=== PATIENT | female | born 1995 | race Caucasian/White ===

== ENCOUNTER → 2017-04-29 | Outpatient (CLI) | payer OTHER ==
[~2017-04-29] MED LIST: IBUP-1050 PO; LEVE500T13 PO; MULT-506 PO; SERT25TA PO
[2017-04-29 18:43] LABS: URINE APPEARANCE CLEAR (CLEAR); URINE BILIRUBIN NEG (NEG); URINE COLOR YELLOW; URINE NITRITE NEG (NEG); URINE PH 5.5 (4.5-7.5); URINE SPECIFIC GRAVITY 1.016 (1.000-1.030); UROBILINOGEN NEG (NEG)
[2017-04-29 18:51] LABS: MANUAL MICROSCOPIC REQUIRED? NO; REVIEW REQ? NO
== END | disposition home or self-care (01) ==
LOC: C.LABSPEC 17:56
PROVIDERS: ATTEND Nurse Practitioner Family
DX: R39.9 Unspecified symptoms and signs involving the genitourinary system (principal)

== ENCOUNTER → 2017-06-22 | Outpatient (CLI) | payer OTHER ==
[2017-06-22 10:24] LABS: BLOOD UREA NITROGEN 6 mg/dl (7-18); BUN/CREATININE RATIO 7.2 (10-20); CALCIUM 9.3 mg/dl (8.5-10.1); CARBON DIOXIDE 24 mmol/L (21-32); CHLORIDE 110 mmol/L (98-107); CREATININE 0.89 mg/dl (0.60-1.20); GLUCOSE 83 mg/dl (70-99); POTASSIUM 4.1 mmol/L (3.5-5.1); SODIUM 141 mmol/L (136-145)
[2017-06-22 10:27] LABS: CHOLESTEROL 155 mg/dl (0-200); CHOLESTEROL/HDL RATIO 2.7; HDL CHOLESTEROL 57 mg/dl; LDL CHOLESTEROL CALCULATED 77 mg/dl; TRIGLYCERIDES 104 mg/dl (0-150); VERY LOW DENSITY LIPOPROT CALC 21 mg/dl
== END | disposition home or self-care (01) ==
LOC: C.LAB1850 09:09
PROVIDERS: ATTEND Nurse Practitioner Family
DX: Z13.220 Encounter for screening for lipoid disorders (principal); Z13.1 Encounter for screening for diabetes mellitus

== ENCOUNTER → 2017-12-29 | Outpatient (CLI) | payer OTHER ==
[2017-12-29 16:39] LABS: BASO % 0.3 %; BASO ABS # 0.02 K/uL (0-0.2); EOS % 2.2 %; EOS ABS # 0.16 K/uL (0-0.5); HEMATOCRIT 41.3 % (37-47); HEMOGLOBIN 14.3 g/dL (12.0-16.0); IG# 0.01 K/uL (0.00-0.02); LYMPH % 38.9 %; LYMPH ABS # 2.85 K/uL (1.2-3.4); MEAN CELL VOLUME 87.3 fL (80-100); MEAN CORPUSCULAR HEMOGLOBIN 30.2 pg (25-34); MEAN CORPUSCULAR HGB CONC 34.6 g/dl (32-36); MEAN PLATELET VOLUME 11.6 fL (7.4-10.4); MONO % 6.8 %; NEUT % 51.7 %; NEUT ABS # 3.78 K/uL (1.4-6.5); PLATELET COUNT 150 K/uL (130-400); RED CELL DISTRIBUTION WIDTH CV 12.7 % (11.5-14.5); RED CELL DISTRIBUTION WIDTH SD 40.8 fL (36.4-46.3); WHITE BLOOD COUNT 7.32 K/uL (4.8-10.8)
[2017-12-29 17:08] LABS: ALBUMIN 4.2 gm/dl (3.4-5.0); ALT/SGPT 24 U/L (12-78); AST/SGOT 18 U/L (15-37); BLOOD UREA NITROGEN 9 mg/dl (7-18); CALCIUM 9.3 mg/dl (8.5-10.1); CARBON DIOXIDE 26 mmol/L (21-32); CREATININE 0.85 mg/dl (0.60-1.20); GLUCOSE 97 mg/dl (70-99); POTASSIUM 3.4 mmol/L (3.5-5.1); SODIUM 138 mmol/L (136-145)
[2017-12-29 17:19] LABS: ALKALINE PHOSPHATASE 38 U/L (45-117); TOTAL PROTEIN 7.6 gm/dl (6.4-8.2)
== END | disposition home or self-care (01) ==
LOC: C.LAB1850 16:04
PROVIDERS: ATTEND Nurse Practitioner Family
DX: R53.83 Other fatigue (principal)

== ENCOUNTER 2019-08-17 08:15 | Inpatient (IN) ==
[2019-08-18 09:02] LABS: Appearance Urine Cloudy (Clear); Bacteria Urine Automated 3+ (Negative); Bilirubin Urine Negative (Negative); Blood Urine Negative (Negative); Color Urine Yellow; Epithelial Cell Urine Auto >30 /lpf (0-5); Glucose Urine UA Negative (Negative); Ketones Urine 2+ (Negative); Leukocyte Esterase Urine 1+ (Negative); Nitrite Urine Negative (Negative); Protein Urine Negative (Negative); RBC Urine Automated 0-4 /hpf (0-4); Specific Gravity Urine 1.022 (1.000-1.030); Urobilinogen Urine Negative (Negative)
[2019-08-18 09:18] LABS: Hematocrit (blood only) 37.5 % (37-47); Hemoglobin 12.6 g/dL (12.0-16.0); Mean Corpuscular Hemoglobin 29.5 pg (25-34); Mean Corpuscular Hgb Conc 33.6 g/dL (32-36); Mean Corpuscular Volume 87.8 fL (80-100); Platelet Count 117 K/uL (130-400); Platelet Estimate Decreased (Normal); RDW Coefficient of Variation 13.6 % (11.5-14.5); RDW Standard Deviation 43.1 fL (36.4-46.3); Red Blood Count 4.27 M/uL (4.2-5.4); White Blood Count 8.34 K/uL (4.8-10.8)
[2019-08-18 09:27] LABS: Mucus Urine Present (None Prsent)
[2019-08-18 09:28] LABS: Calcium Oxalate Crystals Urine Present (None Prsent)
[2019-08-18] MEDS ORDERED: CITRIC ACID/SODIUM CITRATE 15 ML UDC PO STA (09:28)
[2019-08-18] MEDS ORDERED: CEFAZOLIN 2000MG 2,000 MG/15 ML SYR IV ONE (09:30)
[2019-08-18] MEDS ORDERED: LACTATED RINGER'S 1,000 ML IV ONE (09:31)
[2019-08-18] MEDS ORDERED: MoRPHine SULFATE PF 1 MG/ML 10 ML AMP/VIAL ONE (10:19)
[2019-08-18] MEDS ORDERED: fentaNYL citrate 100 MCG/2 ML VIAL ONE (10:19)
[2019-08-18] MEDS ORDERED: LACTATED RINGER'S 1,000 ML IV SCH (10:38)
--- NOTE | 2019-08-18 10:40 | Anesthesiology Consultation ---
Date of Service August 18, 2019 Assessment & Plan (1) Encounter for pre-operative examination: Chart Review Chart Review: Acceptable Risk for Surgery and Patient NOT seen in Pre Admission Testing Consults Requested none History Surgery Operation Date: 08/18/19 10:25 Proposed Procedures p Section in LD - Trista Banda MD Height/Weight Height: 5 ft 4 in Weight: 89.358 kg Allergies Allergy/AdvReac Type Severity Reaction Status Date / Time No Known Allergies Allergy Verified 08/18/19 08:41 Medications Home Medications Medication Instructions Recorded Confirmed Last Taken levetiracetam 750 mg tablet 750 mg PO BID 30 Days #60 tab 04/13/19 08/18/19 08/17/19 19:00 prenat.vits,francisca,[id number] 1 tab PO DAILY 04/21/19 08/18/19 08/17/19 07:00 valacyclovir 1 gram tablet 1,000 mg PO BID #21 tab 08/14/19 08/18/19 08/17/19 19:00 Past Medical History Medical History History of depression hx of and no medication History of herpes zoster History of seizure last seizure 2016 takes Kepra passed out and hit head on concrete floor and then passed out again due to seizures febrile seizure as child Exercise / Class Metabolic Activity II 4-5 Yardwork/Stairs/Walk up hill Past Family History Family History Mother Depression Sister Depression Father Hypertension Aunt Seizure maternal Past Surgical History Surgical History History of tonsillectomy History of wisdom tooth extraction Past Anesthesia History No Hx of Anesthesia Complications and No Family Hx of Anesthesia Complications History of PONV No Hx of PONV and No Hx of Motion Sickness Social History Smoking Status: Never smoker Do You Dip or Chew Tobacco: No Hx Alcohol Use: No Hx Substance Use: No substance use type: does not use Physical Exam Vital Signs Last Vital Signs Temp 36.7 C 08/18/19 08:38 Pulse 75 08/18/19 08:31 Resp 18 08/18/19 08:38 BP 128/73 08/18/19 08:31 Testing Laboratory Results 08/18/19 08:38 Urine Color Yellow 08/18/19 08:20 Urine Appearance Cloudy (Clear) A 08/18/19 08:20 Urine pH 6.0 (4.5-7.5) 08/18/19 08:20 Ur Specific [place] 1.022 (1.000-1.030) 08/18/19 08:20 Urine Protein Negative (Negative) 08/18/19 08:20 Urine Glucose (UA) Negative (Negative) 08/18/19 08:20 Urine Ketones 2+ (Negative) H 08/18/19 08:20 Urine Nitrite Negative (Negative) 08/18/19 08:20 Ur Leukocyte Esterase 1+ (Negative) H 08/18/19 08:20 Urine WBC (Auto) 10-30 /hpf (0-5) H 08/18/19 08:20 Urine RBC (Auto) 0-4 /hpf (0-4) 08/18/19 08:20 U Hyaline Cast (Auto) 5-10 /lpf (0-5) H 08/18/19 08:20 U Epithel Cells (Auto) >30 /lpf (0-5) H 08/18/19 08:20 Urine Bacteria (Auto) 3+ (Negative) H 08/18/19 08:20 Blood Type Cancelled 08/18/19 08:38 Antibody Screen Cancelled 08/18/19 08:38
--- NOTE | 2019-08-18 11:27 | History & Physical Report ---
Date of Service August 18, 2019 History of Present Illness Primary Care Provider: Artemio Hanks III, OLVIN Allergies Allergy/AdvReac Type Severity Reaction Status Date / Time No Known Allergies Allergy Verified 08/18/19 08:41 Home Medications Home Medications Medication Instructions Recorded Confirmed Type levetiracetam 750 mg tablet 750 mg PO BID 30 Days #60 tab 04/13/19 08/18/19 Rx prenat.vits,francisca,[id number] 1 tab PO DAILY 04/21/19 08/18/19 History valacyclovir 1 gram tablet 1,000 mg PO BID #21 tab 08/14/19 08/18/19 Rx Past Med/Surg History Medical History History of depression hx of and no medication History of herpes zoster History of seizure last seizure 2016 takes Kepra passed out and hit head on concrete floor and then passed out again due to seizures febrile seizure as child Surgical History History of tonsillectomy History of wisdom tooth extraction Family History Mother Depression Sister Depression Father Hypertension Aunt Seizure maternal Social History Preferred Language: Uzbek Communication Ability: Effective Soap Slabber Required: No Beliefs That Will Affect Care: None marital status: Single Current Living Situation: Significant Other Other Information That Helps Us Care for You: No Feels Safe at Home: Yes Safety Concerns: Feels Safe At This Time Smoking Status: Never smoker Do You Dip or Chew Tobacco: No ; Second Hand Exposure: No ; Tobacco Cessation Education Requested by Patient: No Hx Alcohol Use: No Hx Substance Use: No Review of Systems Review of Systems: All systems reviewed & are unremarkable except as noted in HPI & below Physical Exam Constitutional: WD/WN, vitals as above Eyes: PERRL, conjunctivae normal, anicteric sclerae ENMT: external ear and nose normal, oropharynx normal Neck: supple Respiratory: normal respiratory effort and able to speak in complete sentences; no respiratory distress Cardiovascular: Rate/Rhythm: regular rate and regular rhythm Gastrointestinal (Abdomen): Gravid / AGA, nontender Musculoskeletal: no cyanosis or clubbing, extremities motor strength 5/5 Skin: no rashes, warm and dry Neurologic: patellar DTR's 2+ bilat, sensation intact Psychiatric: A+Ox3, euthymic affect Genitourinary: Speculum/Bimanual Exam: no vaginal lesions, no vaginal bleeding and uterus nontender OB Exam Monitor Tracing: + external FHT monitor used, + external uterine monitor used and + category I Lymphatic: no cervical or axillary lymphadenopathy Results & Data Vital Signs (Past 12 Hours) Vital Signs Temp Pulse Resp BP 08/18/19 08:38 98.1 F 18 08/18/19 08:31 75 128/73 Supervising Physician Co-Signing Physician Notes Note the assessment and plan is currently locked by anesthsia (Jeanine) so I am putting plan here: Patient's fetus remains breech on scan this morning and we will therefore proceed with planned . PG Care Time/CCT Total # of Minutes Spent Total Time Spent with Patient: Total time spent is greater than 50% in coordination of care (as documented) at patient's floor/unit and/or counseling patient:
[2019-08-18] MEDS ORDERED: MoRPHine SULFATE 2 MG/ML CARP IV PRN (11:51)
[2019-08-18] MEDS ORDERED: NALOXONE HCL 0.4 MG/1 ML VIAL/CARP IV PRN (11:51)
[2019-08-18] MEDS ORDERED: NALOXONE HCL 0.08 MG in SYRINGE 1.8 ML IV PRN (11:51)
[2019-08-18] MEDS ORDERED: ePHEDrine sulfate 50 MG/ML AMP IV PRN (11:51)
[2019-08-18] MEDS ORDERED: LACTATED RINGER'S 500 ML IV PRN (11:51)
[2019-08-18] MEDS ORDERED: NALBUPHINE HCL INJ 10 MG/ML AMP IV PRN (11:51)
[2019-08-18] MEDS ORDERED: ONDANSETRON INJ 2 MG/ML 2 ML VIAL IV PRN (11:51)
[2019-08-18] MEDS ORDERED: NALOXONE HCL 1 MG in SODIUM CHLORIDE 0.9% 1000ML 1,000 ML IV PRN (11:51)
[2019-08-18] MEDS ORDERED: MoRPHine SULFATE PF 1 MG/ML 10 ML AMP/VIAL INT SPINAL ONE (11:51)
[2019-08-18] MEDS ORDERED: HYDROmorphone INJ 0.5 MG/0.5 ML SYR IV PRN (11:51)
[2019-08-18] MEDS ORDERED: DiphenhydrAMINE HCL 50 MG/ML VIAL IV PRN (11:51)
[2019-08-18] MEDS ORDERED: DC INTRASPINAL MORPHINE SCH (12:00)
[2019-08-18] MEDS ORDERED: SODIUM CHLORIDE 0.9% 1000ML 1,000 ML IV SCH (12:00)
[2019-08-18] MEDS ORDERED: NO NARCOTICS OR SEDATIVES SCH (12:00)
[2019-08-18] MEDS ORDERED: OXYTOCIN 10 UNITS/ML VIAL ONE (12:23)
[2019-08-18] MEDS ORDERED: PHENYLEPHRINE 100MCG/ML 5ML SYR ONE (12:23)
[2019-08-18] MEDS ORDERED: ePHEDrine sulfate 50 MG/ML SYR ONE (12:23)
[2019-08-18] MEDS ORDERED: ONDANSETRON INJ 2 MG/ML 2 ML VIAL ONE (12:23)
--- NOTE | 2019-08-18 12:49 | Anesthesiology Progress Note ---
Date of Service August 18, 2019 Anesthesia Post Procedure Vital Signs Vital Signs: Temp Pulse Resp BP Pulse Ox 08/18/19 12:45 73 112/59 L 96 08/18/19 08:38 36.7 C 18 08/18/19 08:31 75 128/73 Transfer of Care Handoff Completed per policy Notes Mental Status: alert / awake / arousable and participated in evaluation Patient Amnestic to Procedure: No Nausea / Vomiting: adequately controlled Pain: adequately controlled Airway Patency, RR, SpO2: stable & adequate BP & HR: stable & adequate Hydration State: stable & adequate Neuraxial Anesthesia: was administered and sensory block is resolving Anesthetic Complications: no major complications apparent and Pt Satisfied with anesthetic care
--- NOTE | 2019-08-18 12:50 | Operative Report ---
PG Post Operative Report Pre & Post Diagnosis Operation Date: 08/18/19 10:25 Pre-Op Diagnosis: SIUP in double footling breech position Post-Op Diagnosis: Same;Delivery of a live female child at 1205 I identified the patient and participated in the time-out.: Yes Procedure Operation Date: 08/18/19 10:25 Actual Procedures Primary Low Transverse Section in - Trista Banda MD Surgeon Trista Banda MD Supervisor Nuclear Medicine Jamal Estimated Blood Loss 500 Findings Consistent with Post-Op Diagnosis Specimens Placenta, cord blood Anesthesia Type Spinal Complications none Disposition Accompanied Patient To Recovery: Yes Disposition: L&D Description of Procedure The patient was brought to the operating room and placed on the table in the supine position with a leftward tilt, then prepped and draped in standard sterile fashion. A hard time out was taken prior to proceeding. A pfannensteil incision was created sharply and carried down to the fascia using bovie electrocautery. The fascia was nicked and then extended using frank scissors. The edges of the fascia were grasped with Matteo clamps and elevated, then sharply and bluntly dissected off the underlying rectus. The midline of the rectus was identified and bluntly . The peritoneum was bluntly entered, and this entry was extended using pressure from the surgeon's hands. The bladder retractor was placed and the lower uterine segment was examined and found to be well developed. A bladder flap was created and the retractor was replaced behind this flap to protect the bladder. A transverse lower uterine incision was then created, with final entry to the uterine cavity made in a blunt manner with the surgeon's finger. Clear amniotic fluid was encountered. The pelvis was elevated to the incision and delivered using mild fundal pressure, then rotated to sacrum-anterior position. The torso was wrapped in a wet blue towel, the arms were each delivered in physiologic fashion, and the head was delivered maintaining flexion of the neck at all times. The cord was doubly clamped and cut, then the vigorous infant was taken to the warmer for finger lift operator care. The placenta was manually extracted, then the uterus was gently exteriorized from the maternal abdomen. The cavity was cleared of clot and debris using a dry lap sponge. The angles of the incision were identified with allis clamps, and the hysterotomy was then repaired in running locked fashion using 0-vicryl suture, followed by a second imbricating layer. The tubes and ovaries were examined and found to be normal bilaterally. The posterior gutter was irrigated and cleared of clot and debris. The uterus was then gently re-internalized to the abdomen. Lateral gutters were cleared of clot and debris using a damp lap sponge, and after placement of one additional cwnbcc-[id number] stitch just to the right of midline along the hysterotomy, a final exam of the hysterotomy revealed good hemostasis. The rectus muscles were allowed to reapproximate naturally. The angle of the fascia was grasped with a Matteo clamp and the fascia was then repaired in running non-locked fashion with 1-vicryl suture. At the completion of repair, the fascia was examined and found to be free of any defect. The subcutaneous tissue was copiously irrigated and then reapproximated using 3-0 chromic. The skin was then closed using 4-0 monocryl in a running subcuticular fashion and a dermabond dressing was applied. The varela was noted to be draining clear yellow urine as the patient was transferred back to her recovery room. I attest to the content of the Intraoperative Record and any orders documented therein. Any exceptions are noted below.
[2019-08-18] MEDS ORDERED: HYDROCORTISONE ACETATE 25 MG SUPP PR PRN (14:07)
[2019-08-18] MEDS ORDERED: SUPERCREAM 0.870% 15 GM JAR EXT PRN (14:07)
[2019-08-18] MEDS ORDERED: BENZOCAINE 20% AER SPR 82.5 GM CAN EXT PRN (14:07)
[2019-08-18] MEDS ORDERED: DIPHTHERIA/TETANUS/PERTUSSIS 0.5 ML SYR/VIAL IM ONE (14:07)
[2019-08-18] MEDS ORDERED: OXYTOCIN 30 UNITS in LACTATED RINGER'S 1,000 ML IV SCH (14:07)
[2019-08-18] MEDS ORDERED: PROMETHAZINE HCL 12.5 MG in SODIUM CHLORIDE 0.9% 50 ML IV STA (14:12)
[2019-08-18] MEDS ORDERED: Nursing to Pharmacy Communication ONE (14:14)
[2019-08-18] MEDS ORDERED: PROMETHAZINE HCL 12.5 MG in SODIUM CHLORIDE 0.9% 50 ML IV PRN (14:18)
[2019-08-18] MEDS: KETOROLAC 30 MG/ML VIAL IV PRN (15:00)
[2019-08-18] MEDS: levETIRAcetam 250 MG TAB PO SCH (21:16)
[2019-08-18] MEDS: DOCUSATE SODIUM 100 MG CAP PO SCH (21:16)
[2019-08-18] MEDS: SIMETHICONE 80 MG CHEW PO SCH (21:16)
[2019-08-18] MEDS: VALACYCLOVIR HCL 500 MG TABLET PO SCH (21:45)
[2019-08-19] MEDS: KETOROLAC 30 MG/ML VIAL IV PRN (04:44)
[2019-08-19] MEDS ORDERED: ONDANSETRON INJ 2 MG/ML 2 ML VIAL IV PRN (05:52)
[2019-08-19] MEDS ORDERED: PROMETHAZINE HCL 25 MG in SODIUM CHLORIDE 0.9% 50 ML IV PRN (05:52)
[2019-08-19] MEDS ORDERED: DiphenhydrAMINE HCL 50 MG/ML VIAL IV PRN (05:52)
[2019-08-19] MEDS ORDERED: MEPERIDINE HCL 50 MG/ML CARP IV PRN (05:52)
[2019-08-19] MEDS ORDERED: KETOROLAC 30 MG/ML VIAL IV PRN (05:52)
--- NOTE | 2019-08-19 06:26 | Obstetrical Progress Note ---
Date of Service <Anurag Arciniega MD - Last Filed: 08/19/19 06:29> August 19, 2019 Assessment & Plan <Anurag Arciniega MD - Last Filed: 08/19/19 06:29> (1) : LTCS POD#1 doing well, voiding well in varela tolerating foods continue routine care until discharge after discharge will have follow-up in 6 weeks Subjective <Anurag Arciniega MD - Last Filed: 08/19/19 06:29> Ms. Bradley is a 23 y/o female ; POD #1 following delivery at 39+ weeks; doing well this morning; having minimal abdominal cramping/pain; voiding into varela (1425 documented out in last 2 hours, with an additional 1800 in varela bag); tolerating small meals overnight; and able to ambulate some Review of Systems Constitutional: denies fever; chills; sweats; headache Respiratory: denies shortness of breath, difficulty breathing Cardiac: denies chest pain; palpitations; chest pressure Breast: denies breast pain : denies dysuria Physical Exam <Anurag Arciniega MD - Last Filed: 08/19/19 06:29> General: alert; oriented; no acute distress Cardiac: RRR; no m/g/r Respiratory: CTAB a/p; no wheezes/rales/rhonchi; no increased work of breathing; symmetrical chest rise; no respiratory distress Abdomen: soft; NT/ND; bowel sounds positive, incision with dermabond over it, no erythema/exudate Uterus: uterine fundus firm; palpable 1cm below umbilicus Lower extrem: no lower extremity edema or swelling; no deep calf pain; Kandace's sign negative b/l Results & Data <Anurag Arciniega MD - Last Filed: 08/19/19 06:29> Vital Signs (Past 12 Hours) Vital Signs Temp Pulse Resp BP Pulse Ox 08/19/19 05:32 17 99 08/19/19 04:40 36.9 C 77 17 105/59 L 98 08/19/19 03:45 17 98 08/19/19 02:48 18 98 08/19/19 01:45 17 96 08/19/19 00:10 17 96 08/18/19 23:10 36.6 C 74 17 97/56 L 96 08/18/19 22:40 17 96 08/18/19 21:35 18 98 08/18/19 20:45 20 98 08/18/19 19:40 36.6 C 64 20 123/69 100 08/18/19 18:30 18 100 Laboratory Results 08/18/19 08/18/19 08/18/19 Range/Units 08:38 08:38 08:33 WBC 8.34 (4.8-10.8) K/uL RBC 4.27 (4.2-5.4) M/uL Hgb 12.6 (12.0-16.0) g/dL Hct 37.5 (37-47) % MCV 87.8 (80-100) fL MCH 29.5 (25-34) pg MCHC 33.6 (32-36) g/dL RDW Std Deviation 43.1 (36.4-46.3) fL RDW Coeff of Joey 13.6 (11.5-14.5) % Plt Count 117 L (130-400) K/uL MPV 12.0 H (7.4-10.4) fL Platelet Estimate Decreased L (Normal) Urine Color Urine Appearance (Clear) Urine pH (4.5-7.5) Ur Specific [place] (1.000-1.030) Urine Protein (Negative) Urine Glucose (UA) (Negative) Urine Ketones (Negative) Urine Blood (Negative) Urine Nitrite (Negative) Urine Bilirubin (Negative) Urine Urobilinogen (Negative) Ur Leukocyte Esterase (Negative) Urine WBC (Auto) (0-5) /hpf Urine RBC (Auto) (0-4) /hpf U Hyaline Cast (Auto) (0-5) /lpf U Epithel Cells (Auto) (0-5) /lpf Urine Bacteria (Auto) (Negative) Calcium Oxalate Crystal (None Prsent) Urine Mucus (None Prsent) Urine Yeast Blood Type Cancelled O Positive Antibody Screen Cancelled NEGATIVE 08/18/19 Range/Units 08:20 WBC (4.8-10.8) K/uL RBC (4.2-5.4) M/uL Hgb (12.0-16.0) g/dL Hct (37-47) % MCV (80-100) fL MCH (25-34) pg MCHC (32-36) g/dL RDW Std Deviation (36.4-46.3) fL RDW Coeff of Joey (11.5-14.5) % Plt Count (130-400) K/uL MPV (7.4-10.4) fL Platelet Estimate (Normal) Urine Color Yellow Urine Appearance Cloudy A (Clear) Urine pH 6.0 (4.5-7.5) Ur Specific [place] 1.022 (1.000-1.030) Urine Protein Negative (Negative) Urine Glucose (UA) Negative (Negative) Urine Ketones 2+ H (Negative) Urine Blood Negative (Negative) Urine Nitrite Negative (Negative) Urine Bilirubin Negative (Negative) Urine Urobilinogen Negative (Negative) Ur Leukocyte Esterase 1+ H (Negative) Urine WBC (Auto) 10-30 H (0-5) /hpf Urine RBC (Auto) 0-4 (0-4) /hpf U Hyaline Cast (Auto) 5-10 H (0-5) /lpf U Epithel Cells (Auto) >30 H (0-5) /lpf Urine Bacteria (Auto) 3+ H (Negative) Calcium Oxalate Crystal Present A (None Prsent) Urine Mucus Present A (None Prsent) Urine Yeast Not Reportable Blood Type Antibody Screen Medications Administered Current Inpatient Medications Benzocaine (Dermoplast Pain Relieving Cetronia) 1 appln EXT UD PRN PRN Reason: use on skin as needed Stop: 09/17/19 14:06 Cocaine HCl (Supercream 0.870%) 1 gm EXT UD PRN PRN Reason: hemmorrhoidal inflammation Stop: 09/01/19 14:06 Diphenhydramine HCl (Benadryl Capsule) 25 mg PO QID PRN PRN Reason: Itching Stop: 09/18/19 05:51 Diphenhydramine HCl (Benadryl) 25 mg IV QID PRN PRN Reason: Itching Stop: 09/18/19 05:51 Docusate Sodium (Colace) 100 mg PO DAILY@, [facility] Stop: 09/17/19 20:59 Last Admin: 08/18/19 21:16 Dose: 100 mg Documented by: Ferrous Sulfate (Feosol) 325 mg PO DAILY@08 [facility] Stop: 09/18/19 07:59 Hydrocortisone (Anusol Hc) 25 mg [place] BID PRN PRN Reason: Hemorrhoids Stop: 09/17/19 14:06 Promethazine HCl 25 mg/ Sodium (Chloride) 51 mls @ 204 mls/hr IV Q4H PRN PRN Reason: Nausea And Vomiting Stop: 09/18/19 05:51 Ibuprofen (Motrin) 600 mg PO Q4H PRN PRN Reason: Pain Stop: 09/17/19 14:06 Ketorolac Tromethamine (Toradol) 30 mg IV Q6H PRN PRN Reason: Pain Stop: 08/24/19 05:51 Levetiracetam (Keppra) 750 mg PO BID СЕРГЕЙ Stop: 09/17/19 20:59 Last Admin: 08/18/19 21:16 Dose: 750 mg Documented by: Meperidine HCl (Demerol) 50 - 75 mg IV Q4H PRN PRN Reason: Pain Stop: 09/02/19 05:51 Ondansetron HCl (Zofran) 4 mg IV Q4H PRN PRN Reason: Nausea And Vomiting Stop: 09/18/19 05:51 Oxycodone/Acetaminophen (Percocet 5mg/325mg) 1 - 2 tab PO Q4H PRN PRN Reason: Pain Stop: 09/02/19 05:51 Prenat Multivit/[place]/Iron/Folic Ac ( Vitamin) 1 tab PO DAILY@08 [facility] Stop: 09/18/19 07:59 Simethicone (Mylicon) 80 mg PO DAILY@08,13,17,21 СЕРГЕЙ Stop: 09/17/19 14:06 Last Admin: 08/18/19 21:16 Dose: 80 mg Documented by: Valacyclovir HCl (Valtrex) 1,000 mg PO BID СЕРГЕЙ Stop: 08/28/19 20:59 Last Admin: 08/18/19 21:45 Dose: 1,000 mg Documented by: <Trista Banda MD - Last Filed: 08/19/19 08:08> Co-Signing Physician Notes I have reviewed the resident's note and examined the patient myself, and agree with the note above. Resident Activity Tracking <Anurag Arciniega MD - Last Filed: 08/19/19 06:29> Resident Involvement: Resident Care Provided Care Provided: OB Delivery
[2019-08-19 06:43] LABS: Basophils # (auto) 0.01 K/uL (0-0.2); Basophils % (auto) 0.1 %; Eosinophils # (auto) 0.07 K/uL (0-0.5); Eosinophils % (auto) 0.7 %; Hemoglobin 11.5 g/dL (12.0-16.0); Immature Granulocytes # (auto) 0.02 K/uL (0.00-0.02); Immature Granulocytes % (auto) 0.2 %; Lymphocytes # (auto) 1.55 K/uL (1.2-3.4); Lymphocytes % (auto) 16.6 %; Mean Corpuscular Hemoglobin 29.2 pg (25-34); Mean Corpuscular Hgb Conc 32.9 g/dL (32-36); Mean Corpuscular Volume 88.8 fL (80-100); Mean Platelet Volume 11.7 fL (7.4-10.4); Monocytes # (auto) 0.86 K/uL (0.11-0.59); Monocytes % (auto) 9.2 %; Neutrophils # (auto) 6.85 K/uL (1.4-6.5); Neutrophils % (auto) 73.2 %; Platelet Count 116 K/uL (130-400); RDW Coefficient of Variation 13.6 % (11.5-14.5); RDW Standard Deviation 44.2 fL (36.4-46.3); Red Blood Count 3.94 M/uL (4.2-5.4); White Blood Count 9.36 K/uL (4.8-10.8)
--- NOTE | 2019-08-19 08:36 | Anesthesiology Progress Note ---
Date of Service August 19, 2019 Anesthesia Post Procedure Vital Signs Vital Signs: Temp Pulse Pulse Pulse Resp BP BP 08/19/19 05:32 17 08/19/19 04:40 36.9 C 77 17 105/59 L 08/19/19 03:45 17 08/19/19 02:48 18 08/19/19 01:45 17 08/19/19 00:10 17 08/18/19 23:10 36.6 C 74 17 97/56 L 08/18/19 22:40 17 08/18/19 21:35 18 08/18/19 20:45 20 08/18/19 19:40 36.6 C 64 20 123/69 08/18/19 18:30 18 08/18/19 17:30 18 08/18/19 16:30 18 08/18/19 15:30 36.5 C 84 18 115/68 08/18/19 15:10 84 08/18/19 15:05 62 120/65 08/18/19 15:00 36.5 C 76 18 08/18/19 14:55 98 H 118/57 L 08/18/19 14:50 83 08/18/19 14:45 36.5 C 87 16 104/59 L 08/18/19 14:40 86 08/18/19 14:35 70 117/56 L 08/18/19 14:30 90 08/18/19 14:25 63 109/53 L 08/18/19 14:20 76 08/18/19 14:15 75 16 116/58 L 08/18/19 14:10 78 08/18/19 14:06 76 118/56 L 08/18/19 14:05 63 08/18/19 14:00 68 08/18/19 13:59 80 113/65 08/18/19 13:55 59 L 08/18/19 13:50 62 08/18/19 13:45 73 16 120/56 L 08/18/19 13:40 71 08/18/19 13:35 85 16 118/64 08/18/19 13:30 86 08/18/19 13:25 93 H 16 115/53 L 08/18/19 13:20 61 08/18/19 13:16 88 116/64 08/18/19 13:15 80 16 08/18/19 13:10 82 08/18/19 13:06 95 H 133/65 08/18/19 13:05 72 16 08/18/19 13:00 83 08/18/19 12:55 84 16 119/58 L 08/18/19 12:50 70 08/18/19 12:45 36.4 C L 73 16 112/59 L 08/18/19 08:38 36.7 C 18 Pulse Ox 08/19/19 05:32 99 08/19/19 04:40 98 08/19/19 03:45 98 08/19/19 02:48 98 08/19/19 01:45 96 08/19/19 00:10 96 08/18/19 23:10 96 08/18/19 22:40 96 08/18/19 21:35 98 08/18/19 20:45 98 08/18/19 19:40 100 08/18/19 18:30 100 08/18/19 17:30 96 08/18/19 16:30 100 08/18/19 15:30 100 08/18/19 15:10 99 08/18/19 15:05 99 08/18/19 15:00 100 08/18/19 14:55 97 08/18/19 14:50 99 08/18/19 14:45 98 08/18/19 14:40 99 08/18/19 14:35 98 08/18/19 14:30 100 08/18/19 14:25 98 08/18/19 14:20 99 08/18/19 14:15 99 08/18/19 14:10 98 08/18/19 14:06 08/18/19 14:05 98 08/18/19 14:00 97 08/18/19 13:59 08/18/19 13:55 98 08/18/19 13:50 97 08/18/19 13:45 96 08/18/19 13:40 97 08/18/19 13:35 97 08/18/19 13:30 95 08/18/19 13:25 96 08/18/19 13:20 96 08/18/19 13:16 08/18/19 13:15 97 08/18/19 13:10 98 08/18/19 13:06 08/18/19 13:05 97 12/06/19 13:00 96 08/18/19 12:55 96 08/18/19 12:50 95 08/18/19 12:45 96 08/18/19 08:38 Pain Intensity Bilateral Lower Abdomen: Pain Intensity: 3 Transfer of Care Handoff Completed per policy Notes Mental Status: alert / awake / arousable Patient Amnestic to Procedure: Yes Nausea / Vomiting: adequately controlled Pain: adequately controlled Airway Patency, RR, SpO2: stable & adequate BP & HR: stable & adequate Hydration State: stable & adequate Neuraxial Anesthesia: was administered and sensory block resolved Anesthetic Complications: no major complications apparent and Pt Satisfied with anesthetic care
[2019-08-19] MEDS: SIMETHICONE 80 MG CHEW PO SCH ×3 (09:35→20:51)
[2019-08-19] MEDS: FERROUS SULFATE 325 MG TAB PO SCH (09:35)
[2019-08-19] MEDS: DOCUSATE SODIUM 100 MG CAP PO SCH ×2 (09:35→20:53)
[2019-08-19] MEDS: PRENATAL VITAMIN 1 TAB PO SCH (09:35)
[2019-08-19] MEDS: levETIRAcetam 250 MG TAB PO SCH ×2 (09:35→20:52)
[2019-08-19] MEDS: VALACYCLOVIR HCL 500 MG TABLET PO SCH ×2 (09:35→20:53)
[2019-08-19] MEDS: IBUPROFEN 600 MG TAB PO PRN ×2 (14:59→18:27)
[2019-08-20] MEDS: IBUPROFEN 600 MG TAB PO PRN ×6 (00:39→21:39)
[2019-08-20 06:24] LABS: Hematocrit (blood only) 34.6 % (37-47); Hemoglobin 11.3 g/dL (12.0-16.0)
[2019-08-20] MEDS: levETIRAcetam 250 MG TAB PO SCH ×2 (08:50→21:37)
[2019-08-20] MEDS: DOCUSATE SODIUM 100 MG CAP PO SCH ×2 (08:50→21:38)
[2019-08-20] MEDS: SIMETHICONE 80 MG CHEW PO SCH ×3 (08:50→21:37)
[2019-08-20] MEDS: VALACYCLOVIR HCL 500 MG TABLET PO SCH ×2 (08:50→21:38)
[2019-08-20] MEDS: PRENATAL VITAMIN 1 TAB PO SCH (08:50)
[2019-08-20] MEDS: FERROUS SULFATE 325 MG TAB PO SCH (08:51)
--- NOTE | 2019-08-20 08:53 | Obstetrical Progress Note ---
Date of Service August 20, 2019 Assessment & Plan (1) delivery delivered: Plan currently is to remain in hospital with d/c tomorrow. Routine care. If breast feeding goes very well today, can consider d/c later today. Patient denies that she is depressed. Will watch closely. Day #:: 2 Subjective Ambulation: ambulating normally Voiding: no voiding problems Passing Gas:: Yes Diet Tolerance:: regular diet (no n/v) Lochia:: Small Feeding Type:: breast feeding Patient feels well today. Is a bit tearful this am, but notes it is happy tears. This happened shortly after discussing latch and having her stay til tomorrow to work on this. Physical Exam Constitutional WD/WN, vitals as above Gastrointestinal (Abdomen) soft, nt, nd ff/nt at u inc-c/d/i Results & Data Vital Signs (Past 12 Hours) Vital Signs Temp Pulse Resp BP Pulse Ox 08/20/19 00:30 37.2 C 68 17 116/74 97
[2019-08-20] MEDS: OXYCODONE/ACETAMINOPHEN 5mg/325mg TAB PO PRN (21:39)
[2019-08-21] MEDS: IBUPROFEN 600 MG TAB PO PRN ×2 (02:33→10:26)
[2019-08-21] MEDS: OXYCODONE/ACETAMINOPHEN 5mg/325mg TAB PO PRN ×2 (02:33→10:26)
--- NOTE | 2019-08-21 06:02 | Obstetrical Progress Note ---
Date of Service <Anurag Arciniega MD - Last Filed: 08/21/19 06:30> August 21, 2019 Assessment & Plan <Anurag Arciniega MD - Last Filed: 08/21/19 06:30> (1) : LTCS POD#3 doing well, voiding well, tolerating foods continue routine care until discharge after discharge will have follow-up in 6 weeks Subjective <Anurag Arciniega MD - Last Filed: 08/21/19 06:30> Ms. Bradley is a 23 y/o female ; POD #3 following delivery at 39+ weeks; doing well this morning; having minimal abdominal cramping/pain; voiding well; tolerating meals overnight; and able to ambulate some Review of Systems Constitutional: denies fever; chills; sweats; headache Respiratory: denies shortness of breath, difficulty breathing Cardiac: denies chest pain; palpitations; chest pressure Breast: denies breast pain : denies dysuria Physical Exam <Anurag Arciniega MD - Last Filed: 08/21/19 06:30> General: alert; oriented; no acute distress Cardiac: RRR; no m/g/r Respiratory: CTAB a/p; no wheezes/rales/rhonchi; no increased work of breathing; symmetrical chest rise; no respiratory distress Abdomen: soft; NT/ND; bowel sounds positive Uterus: uterine fundus firm; palpable 3cm below umbilicus Lower extrem: no lower extremity edema or swelling; no deep calf pain; Kandace's sign negative b/l Results & Data <Anurag Arciniega MD - Last Filed: 08/21/19 06:30> Vital Signs (Past 12 Hours) Vital Signs Temp Pulse Resp BP Pulse Ox 08/20/19 23:15 36.8 C 56 L 16 114/70 98 Laboratory Results 08/20/19 Range/Units 05:59 Hgb 11.3 L (12.0-16.0) g/dL Hct 34.6 L (37-47) % Medications Administered Current Inpatient Medications Benzocaine (Dermoplast Pain Relieving [place]) 1 appln EXT UD PRN PRN Reason: use on skin as needed Stop: 09/17/19 14:06 Cocaine HCl (Supercream 0.870%) 1 gm EXT UD PRN PRN Reason: hemmorrhoidal inflammation Stop: 12/20/19 14:06 Diphenhydramine HCl (Benadryl Capsule) 25 mg PO QID PRN PRN Reason: Itching Stop: 09/18/19 05:51 Diphenhydramine HCl (Benadryl) 25 mg IV QID PRN PRN Reason: Itching Stop: 09/18/19 05:51 Docusate Sodium (Colace) 100 mg PO DAILY@08, [facility] Stop: 09/17/19 20:59 Last Admin: 08/20/19 21:38 Dose: 100 mg Documented by: Ferrous Sulfate (Feosol) 325 mg PO DAILY@08 [facility] Stop: 09/18/19 07:59 Last Admin: 08/20/19 08:51 Dose: 325 mg Documented by: Hydrocortisone (Anusol Hc) 25 mg DC BID PRN PRN Reason: Hemorrhoids Stop: 09/17/19 14:06 Promethazine HCl 25 mg/ Sodium (Chloride) 51 mls @ 204 mls/hr IV Q4H PRN PRN Reason: Nausea And Vomiting Stop: 09/18/19 05:51 Ibuprofen (Motrin) 600 mg PO Q4H PRN PRN Reason: Pain Stop: 09/17/19 14:06 Last Admin: 08/21/19 02:33 Dose: 600 mg Documented by: Ketorolac Tromethamine (Toradol) 30 mg IV Q6H PRN PRN Reason: Pain Stop: 08/24/19 05:51 Levetiracetam (Keppra) 750 mg PO BID [facility] Stop: 09/17/19 20:59 Last Admin: 08/20/19 21:37 Dose: 750 mg Documented by: Meperidine HCl (Demerol) 50 - 75 mg IV Q4H PRN PRN Reason: Pain Stop: 09/02/19 05:51 Ondansetron HCl (Zofran) 4 mg IV Q4H PRN PRN Reason: Nausea And Vomiting Stop: 09/18/19 05:51 Oxycodone/Acetaminophen (Percocet 5mg/325mg) 1 - 2 tab PO Q4H PRN PRN Reason: Pain Stop: 09/02/19 05:51 Last Admin: 08/21/19 02:33 Dose: 1 tab Documented by: Prenat Multivit/Tester Electronic Scale/Iron/Folic Ac ( Vitamin) 1 tab PO DAILY@08 [facility] Stop: 09/18/19 07:59 Last Admin: 08/20/19 08:50 Dose: 1 tab Documented by: Simethicone (Mylicon) 80 mg PO DAILY@08,13,17,21 [facility] Stop: 09/17/19 14:06 Last Admin: 08/20/19 21:37 Dose: 80 mg Documented by: Valacyclovir HCl (Valtrex) 1,000 mg PO BID [facility] Stop: 08/28/19 20:59 Last Admin: 08/20/19 21:38 Dose: 1,000 mg Documented by: <Deandra Berry MD, FACOG - Last Filed: 08/21/19 08:29> Co-Signing Physician Notes Resident Physician Supervision Note: I interviewed and examined the patient. Discussed with Dr. Arciniega and agree with findings and plan as documented in the note. Any exceptions or clarifications are listed here: Doing well. Breast feeding going much better. Plan d/c. Instructions given. Documented By: Deandra Berry MD, FACOG Resident Activity Tracking <Anurag Arciniega MD - Last Filed: 08/21/19 06:30> Resident Involvement: Resident Care Provided Care Provided: OB Delivery
--- NOTE | 2019-08-21 07:46 | Anesthesiology Progress Note ---
Date of Service August 21, 2019 Anesthesia Post Procedure Vital Signs Vital Signs: Temp Pulse Resp BP Pulse Ox 08/20/19 23:15 36.8 C 56 L 16 114/70 98 08/20/19 16:25 36.5 C 57 L 16 114/62 99 Pain Intensity Bilateral Lower Abdomen: Pain Intensity: 2 Notes Mental Status: alert / awake / arousable and participated in evaluation Patient Amnestic to Procedure: Yes Nausea / Vomiting: adequately controlled Pain: adequately controlled Airway Patency, RR, SpO2: stable & adequate BP & HR: stable & adequate Hydration State: stable & adequate Neuraxial Anesthesia: was administered and sensory block resolved Anesthetic Complications: no major complications apparent and Pt Satisfied with anesthetic care
[2019-08-21] MEDS: PRENATAL VITAMIN 1 TAB PO SCH (08:46)
[2019-08-21] MEDS: levETIRAcetam 250 MG TAB PO SCH (08:46)
[2019-08-21] MEDS: DOCUSATE SODIUM 100 MG CAP PO SCH (08:46)
[2019-08-21] MEDS: SIMETHICONE 80 MG CHEW PO SCH ×2 (08:46→12:13)
[2019-08-21] MEDS: FERROUS SULFATE 325 MG TAB PO SCH (08:46)
[2019-08-21] MEDS: VALACYCLOVIR HCL 500 MG TABLET PO SCH (08:47)
--- NOTE | 2019-08-22 11:08 | Discharge Summary ---
Date of Service August 22, 2019 Discharge Data Consultations 08/18/19 09:38 Consult Anesthesiology Stat Procedures Performed Operation Date: 08/18/19 10:25 Actual Procedures p Section in LD - Trista Banda MD Hospital Course (1) delivery delivered: Patient underwent uncomplicated section, and had an unremarkable postoperative course. She was discharged home at the usual interval and will f/u in office at 6wk.
== END 2019-08-21 17:56 | disposition home or self-care (01) | DRG 788 ==
LOC: EDSTATUS 08:15 → 4S1 08-18 08:18 → 4S2 08-18 16:29